=== PATIENT | male | born 1985 | race Caucasian/White ===

== ENCOUNTER 2016-05-22 09:44 | Emergency (ER) | payer OTHER ==
[~2016-05-22] VITALS: Ht 177.8 cm; Wt 119.5 kg
[2016-05-22 09:45] VITALS: Ht 177.8 cm; Wt 119.5 kg
--- NOTE | 2016-05-22 10:29 | ERA ---
ER Documentation Chief Complaint Date/Time DATE: 05/22/16 TIME: 10:27 Chief Complaint BACK PAIN,NECK PAIN,FEVER HPI Patient is a 31-year-old male brought to the emergency department by his girlfriend. Patient is complaining of back spasm. Patient has had the symptoms before with spontaneous resolution. Patient has not taken any pain medication at this time to relieve the patient has not had an x-ray before his lower back. Patient's pain is worse with movement. Relieved with laying flat. Pt denies h/o NICOLLE including overuse, strain, or trauma; Denies pain >6 weeks; Denies saddle parasthesia, incontinence, RPNF, or pain exacerbated by valsalva. Pt denies fever, chills, night sweats, weight loss, or increase symptoms at night. Denies h/o cardiovascular dz, sciatica, disk herniation, spinal stenosis, fibromyalgia cancer, HIV, IVDU, arthritis or recent surgery. ROS All systems reviewed and are negative except as per history of present illness. Medications Home Meds Active Scripts Cyclobenzaprine Hcl* (Cyclobenzaprine Hcl*) 10 Mg Tablet, 10 MG PO TID, #15 TAB Prov:TEE LAMBERT PA-C 05/22/16 Allergies Allergies: Coded Allergies: Penicillins (Verified Allergy, Unknown, 05/22/16) PMhx/Soc Medical and Surgical Hx: pt denies Medical Hx, pt denies Surgical Hx Hx Alcohol Use: No Hx Substance Use: No Hx Tobacco Use: No Smoking Status: Never smoker Physical Exam Vitals Vital Signs Date Time Temp Pulse Resp B/P Pulse Ox O2 Delivery O2 Flow Rate FiO2 05/22/16 09:45 98.9 88 18 135/79 98 Physical Exam Const: Obese 31-year-old male Head: Atraumatic Eyes: Normal Conjunctiva ENT: Normal External Ears, Nose and Mouth. Neck: Full range of motion..~ No meningismus. Resp: Clear to auscultation bilaterally Cardio: Regular rate and rhythm, no murmurs Abd: Soft, non tender, non distended. Normal bowel sounds Skin: No petechiae or rashes Back: No midline or flank tenderness. Minimal range of motion secondary to pain during "back spasms". Ext: No cyanosis, or edema Neur: Awake and alert Psych: Normal Mood and Affect Results 24 hrs Current Medications Medications (Trade) Dose Ordered Sig/Rachelle Route PRN Reason Start Time Stop Time Status Last Admin Dose Admin Acetaminophen/ Hydrocodone Bitart ([place] (5/325)) 1 tab ONCE ONCE PO 05/22/16 10:30 05/22/16 10:31 DC 05/22/16 10:31 Procedures/MDM Patient is a 31-year-old male who presents complaining of chronic back pain. Patient says that his back has been "spasming for the past 3 days". Patient has no history of trauma. Patient is neurovascularly intact bilaterally. Patient's gait is normal. Patient's physical exam was limited secondary to pain. Patient has no midline tenderness. At this time there is no reasons for me to suspect cauda equina or any other spinal cord impingement syndrome. The condition is most likely musculoskeletal. We will go ahead and discharge the patient with ibuprofen as needed. Departure Diagnosis: Primary Impression: Back muscle spasm Condition: Stable Additional Instructions: Follow up with your PCP within the next 1-3 days for a more thorough evaluation and a possible referral to a specialist. Return the the emergency department immediately if symptoms worsen or change. If you have any questions regarding medications, ask your pharmacist or us before you leave. If any adverse reactions occur while taking your medications, discontinue the treatment and return to the emergency department immediately. Take your medications as directed, and complete the entire course of treatment. TEE LAMBERT PA-C May 22, 2016 10:29
[2016-05-22] MEDS ORDERED: HYDROCODONE/APAP (5/325) TAB PO ONE (10:30)
--- NOTE | 2016-05-22 10:59 | RADRPT ---
PROCEDURE: XR Lumbar Spine. CLINICAL INDICATION: Low back pain. TECHNIQUE: 3 views of the lumbar spine available for review COMPARISON: None available FINDINGS: There is normal mineralization, architecture and alignment. No fractures or osseous lesions are britton ntified. No subluxation is identified. The disk spaces are unremarkable. The facet joints are unr emarkable. The soft tissues are unremarkable. IMPRESSION: Unremarkable lumbar spine x-ray. RPTAT: [facility] .Gordon Palacio MD, MD Date Time Electronically viewed and signed by .Gordon Palacio MD, on 05/22/2016 10:58 .B/
[2016-05-22] MEDS ORDERED: CYCL-319 PO (11:32)
== END 2016-05-22 11:32 | disposition home or self-care (01) ==
LOC: FTE 09:44
DX: M62.830 Muscle spasm of back (principal)
CPT/HCPCS: 72100